=== PATIENT | male | born 1975 | race Two or more races ===

== ENCOUNTER 2024-09-14 10:02 | Emergency (ER) | payer BC, SELFPAY ==
[2024-09-14] VITALS (10 sets, daily range): BP systolic 180–236; BP diastolic 83–149; PULSE 52–92; RESP 16–24; TEMP 36.6–37.2; O2SAT 95–99; BMI 51.7
--- NOTE | 2024-09-14 10:13 | EDNOTE_ITS ---
Upper Respiratory Inf. RME/HPI General Chief Complaint: Flu Like Symptoms Stated Complaint: cough, sob x 3days Time Seen by Provider: 09/14/24 10:13 Source: patient Arrival date/time: 09/14/24 10:02 49-year-old male with a history of hypertension presents to the emergency room with a chief complaint of cough and shortness of breath x 3 days. Mode of arrival: ambulatory Limitations: no limitations Related Data Previous Rx's ?Medication ?Instructions ?Recorded azithromycin 250 mg tablet See Rx Instructions PO .COMPLEX #6 09/14/24 (Zithromax Z-Delbert) tabs lisinopril 20 mg tablet 20 mg PO QDAY #20 tabs 09/14/24 Allergies Allergy/AdvReac Type Severity Reaction Status Date / Time cephalexin [From Keflex] Allergy Intermediate Hives Verified 09/14/24 10:06 Review of Systems Review of Systems Systems Reviewed: All systems reviewed, normal except as documented Constitutional Constitutional: Reports system reviewed and no additional complaints, except as documented, Denies fatigue, Denies fever(s), Denies headache(s) and Denies weakness Eyes Eyes: Reports system reviewed and no additional complaints, except as documented, Denies blurry vision and Denies change in vision ENT Ears, Nose, Mouth, and Throat: Reports system reviewed and no additional complaints, except as documented, Denies otalgia, Denies headache(s), Denies nasal congestion, Denies throat swelling and Denies vertigo Cardiovascular Cardiovascular: Reports system reviewed and no additional complaints, except as documented, Denies chest pain, Reports dyspnea and Reports dyspnea on exertion Respiratory Respiratory: Reports system reviewed and no additional complaints, except as documented, Reports chest congestion, Reports cough, Reports dyspnea, Reports dyspnea on exertion, Reports pain on inspiration, Reports pain with cough and Reports wheezing Gastrointestinal Gastrointestinal: Reports system reviewed and no additional complaints, except as documented, Denies abdominal pain, Denies cramping, Denies nausea and Denies vomiting Genitourinary Genitourinary: Reports system reviewed and no additional complaints, except as documented, Denies dysuria and Denies hematuria Musculoskeletal Musculoskeletal: Reports system reviewed and no additional complaints, except as documented and Denies back pain Integumentary/Breasts Skin/Breast: Reports system reviewed and no additional complaints, except as documented and Denies wounds Neurologic Neurologic: Reports system reviewed and no additional complaints, except as documented, Denies confusion, Denies headache(s), Denies lack of coordination, Denies vertigo and Denies weakness Psychiatric Psychiatric: Reports system reviewed and no additional complaints, except as documented, Denies anxiety, Denies confusion, Denies depression, Denies paranoia, Denies suicidal ideation and Denies tactile hallucinations Endocrine Endocrine: Reports system reviewed and no additional complaints, except as documented and Denies fatigue Hematologic/Lymphatic Hematologic/Lymphatic: Reports system reviewed and no additional complaints, except as documented and Denies lymphadenopathy Allergic/Immunologic Allergic/Immunologic: Reports system reviewed and no additional complaints, except as documented, Denies throat swelling, Denies urticaria and Reports wheezing Past Medical History Social History SMOKING STATUS: Never smoker ED Exam General Limitations: Present no limitations General appearance: Present alert and in no apparent distress Head Head exam: Present atraumatic Eye Eye exam: Present normal appearance, PERRL and EOMI ENT ENT exam: Present normal exam, normal oropharynx and mucous membranes moist Neck Neck exam: Present normal inspection, full ROM and trachea midline Chest Chest inspection: Present normal inspection and symmetric chest wall rise Respiratory Respiratory exam: Present normal lung sounds bilaterally and wheezes; Absent respiratory distress, stridor, accessory muscle use or prolonged expiratory phase Expanded Respiratory Exam Location: Left: wheezes, Right: wheezes, Upper: wheezes and Lower: wheezes Cardiovascular Cardiovascular exam: Present regular rate, normal rhythm and normal heart sounds Abdominal Exam Abdominal exam: Present soft and normal bowel sounds Extremities Exam Extremities exam: Present normal inspection and full ROM Back Exam Back exam: Present normal inspection and full ROM Neurological Exam Neurological exam: Present alert, oriented X3 and CN II-XII intact Psychiatric Psychiatric exam: Present normal affect and normal mood Skin Skin exam: Present warm, dry, intact and normal color Course Quality Measures none Orders Category Date Time Status Bedside COVID-19 Antigen Test NOW Care 09/14/24 10:13 Active Bedside Influenza A&B Antigen Test NOW Care 09/14/24 10:13 Completed EKG (ED ONLY) *Do not use* NOW Care 09/14/24 13:24 Completed EKG (ED ONLY) *Do not use* NOW Care 09/14/24 14:35 Completed Insert IV NOW Care 09/14/24 13:24 Active EKG (ED Only) Stat Exams 09/14/24 13:24 Draft EKG (ED Only) Stat Exams 09/14/24 14:35 Ordered XR chest 2V Stat Exams 09/14/24 10:13 Completed B-Type Natriuretic Peptide Stat Lab 09/14/24 14:03 Completed CBC Stat Lab 09/14/24 14:03 Completed Comprehensive Metabolic Panel Stat Lab 09/14/24 14:03 Completed Troponin I Stat Lab 09/14/24 14:03 Completed ACETAMINOPHEN w/COD 300-30 [Tylenol w/Cod #3] Med 09/14/24 10:13 Discontinued 1 tab PO X1 ONE Albuterol/Ipratr Rt Jacquie [Duoneb Rt Jacquie] Med 09/14/24 10:13 Discontinued 3 ml INH X1 ONE Azithromycin Po [Zithromax PO] Med 09/14/24 16:53 Discontinued 500 mg PO X1 ONE Dexamethasone Inj [Decadron Inj] Med 09/14/24 10:13 Discontinued 10 mg PO X1 ONE Sodium Chloride 0.9% 1000 ml [Ns] 1,000 ml Med 09/14/24 16:01 Discontinued IV 999 mls/hr cloNIDine HCL [Catapres] Med 09/14/24 11:45 Discontinued 0.2 mg PO X1 ONE cloNIDine HCL [Catapres] Med 09/14/24 16:00 Discontinued 0.3 mg PO X1 ONE hydrALAZINE HCL [Apresoline] Med 09/14/24 16:00 Discontinued 25 mg PO X1 ONE hydrALAZINE INJ [Apresoline Inj] Med 09/14/24 13:24 Discontinued 10 mg IV X1 ONE Vital Signs Vital signs: Vital Signs Temperature 99.0 F 09/14/24 10:20 Pulse Rate 68 09/14/24 10:20 Respiratory Rate 24 H 09/14/24 10:20 Blood Pressure 236/149 H 09/14/24 10:20 Pulse Oximetry (%) 95 09/14/24 10:20 Oxygen Delivery Method Room Air 09/14/24 10:20 Upper Respiratory Infection MDM Narrative MDM Narrative:: 49-year-old male with a history of hypertension presents to the emergency room with a chief complaint of cough and shortness of breath x 3 days. Clinically the patient appears nontoxic and in no apparent distress. Physical examination shows clear bilateral lung sounds with no wheezing stridor or any respiratory distress. Patient's O2 saturation is 98% on room air. Chest x-ray was completed and shows right middle lobe pneumonia. Antibiotics are sent to the patient's pharmacy. Patient also has a blood pressure of 204/132. Multiple at tempts were tried to lower this blood pressure. The patient received hydralazine, clonidine and after multiple hours the patient's blood pressure finally dropped to 180/83. Patient was given strict education to follow-up with his primary care provider as he will need an increase in his blood pressure medication. Patient is a GCS of 15 he is alert and oriented neurological examination is within normal limits patient's pupils are PERRLA EOMs are intact patient denies any dizziness lightheadedness blurry vision spots in vision. Patient has a normal steady gait. Cardiac workup was completed and was negative for any acute findings. EKG shows normal sinus rhythm with no ST deviation. Troponin was negative. Patient was discharged and educated to follow-up with primary care provider and return to the emergency room for any evidence of worsening signs or symptoms Patient data External records reviewed:: [facility] previous records Clinical information provided by:: patient Social determinants that could affect healthcare access:: none Patient has the following chronic illnesses:: Hypertension How is presenting disease/condition affected by chronic disease/condition?: uneffected by Evaluation data The following diagnostics were reviewed and interpreted by me:: lab results and radiology exam(s) Lab and/or radiology exams considered but not ordered:: Labs and radiology exams considered and ordered Interpretation Summary: Chest [id number]-[id number]: Right middle lobe pneumonia Normal heart size Mild vascular congestion IMPRESSION: Right middle lobe pneumonia Medications / Prescriptions Medications or Prescriptions considered but not ordered:: Medication given Medication administrations:: Medication Administration History Discontinued Medications Acetaminophen/Codeine Phosphate (Acetaminophen W/Cod 300-30 Tablet) 1 tab PO X1 ONE Stop: 09/14/24 10:14 Last Admin: 09/14/24 10:43 Dose: 1 tab Documented By: KM Albuterol/Ipratropium (Albuterol/Ipratropium (Duoneb) Rt Jacquie 3 Ml Nebu) 3 ml INH X1 ONE Stop: 09/14/24 10:14 Last Admin: 09/14/24 10:51 Dose: 3 ml Documented By: BA Azithromycin (Azithromycin 250 Mg Tablet) 500 mg PO X1 ONE Stop: 09/14/24 16:54 Last Admin: 09/14/24 17:00 Dose: 500 mg Documented By: OA Clonidine (Clonidine Hcl 0.1 Mg Tablet) 0.2 mg PO X1 ONE Stop: 09/14/24 11:46 Last Admin: 09/14/24 12:08 Dose: 0.2 mg Documented By: LEXX Clonidine (Clonidine Hcl 0.1 Mg Tablet) 0.3 mg PO X1 ONE Stop: 09/14/24 16:01 Last Admin: 09/14/24 16:10 Dose: 0.3 mg Documented By: REBECCA Dexamethasone Sodium Phosphate (Dexamethasone Sod Phos Inj 10 Mg/Ml Vial) 10 mg PO X1 ONE Stop: 09/14/24 10:14 Last Admin: 09/14/24 10:44 Dose: 10 mg Documented By: LEXX Comments: oral Hydralazine HCl (Hydralazine Inj 20 Mg/Ml Vial) 10 mg IV X1 ONE Stop: 09/14/24 13:25 Last Admin: 09/14/24 14:29 Dose: 0.5 mg Documented By: KAMILLA Hydralazine HCl (Hydralazine Hcl 25 Mg Tablet) 25 mg PO X1 ONE Stop: 09/14/24 16:01 Last Admin: 09/14/24 16:10 Dose: 25 mg Documented By: REBECCA Sodium Chloride (Ns) 1,000 mls @ 999 mls/hr IV .Q1H1M ONE Stop: 09/14/24 17:01 Last Admin: 09/14/24 16:09 Dose: 999 mls/hr Documented By: REBECCA Rx given Consultations Consultation(s) initiated? (list below): No Diagnosis Upper Respiratory Differential Diagnosis: upper respiratory infection, viral infection, bronchitis, influenza and other (Community-acquired pneumonia) Most likely diagnosis given after review of the tests above:: Community-acquired pneumonia Admission Indicated Admission indicated?: not indicated Admission Request Was there a request for admission?: No Disposition Plan Disposition Plan: Discharge Discharge Attestation Discharge Attestation: The patient and all family members were given an opportunity to ask questions and understood the discharge instructions. Discharge instructions specifically effects, indications for sooner follow up or return to the emergency department, and the expected course of current diagnosis. Patient condition: Stable Discharge Plan Plan Patient Disposition: HOME (Self Care) Disposition Comment: Stable Prescriptions/Referrals Prescriptions/Med Rec: New azithromycin [Zithromax Z-Delbert] 250 mg tablet See Rx Instructions .ROUTE .COMPLEX Qty: 6 0RF Rx Instructions: For 250 mg dose pack: take 500 mg today (day 1), then 250 mg for 4 days (days 2-5) lisinopril 20 mg tablet 20 mg PO QDAY Qty: 20 0RF Problem List Clinical Impression: Community acquired pneumonia, Asymptomatic hypertensive urgency Patient/Caregiver Discharge Instructions Education Materials: ED Pneumonia (Adult) Additional Instructions: Please follow-up with your primary care provider in the next 24 to 48 hours Your blood pressure is currently uncontrolled you will need to follow-up with your primary care provider for further management. Antibiotics are sent to your pharmacy as well as blood pressure medication please take this blood pressure medication with your metoprolol medication. For any evidence of worsening signs or symptoms please return to the emergency room immediately Print Language: Zambian Stand Alone Forms: Shavon Award Info., Patient Portal Info Letter PA/MESSAGE AND DELIVERY SERVICE PRICER Supervising Physician PA/JALYN Supervising Physician: Dr. Roth
--- NOTE | 2024-09-14 10:13 | XR_ITS ---
Examination: PA lateral chest 2 views TECHNIQUE: Upright PA lateral chest 2 views Exam date and time: September 14, 2024 1017 hours INDICATIONS: Coughing fever today. FINDINGS: Right middle lobe pneumonia Normal heart size Mild vascular congestion IMPRESSION: Right middle lobe pneumonia
[2024-09-14] MEDS: ACETAMINOPHEN w/COD 300-30 TABLET 1 TAB PO (10:43)
[2024-09-14] MEDS: DEXAMETHASONE SOD PHOS INJ 10 MG/ML VIAL PO (10:44)
[2024-09-14] MEDS: ALBUTEROL/IPRATROPIUM (Duoneb) RT SOL 3 ML NEBU INH (10:51)
[2024-09-14] MEDS: cloNIDine HCL 0.1 MG TABLET 0.2 MG PO (12:08)
--- NOTE | 2024-09-14 13:24 | EKG_ITS ---
[facility] Test Date: 2024-09-14 Pat Name: REYNA RUSSO Department: Room: - Gender: Male [employer]: : 1975 Requested By: Aníbal Casillas Order Number: [id number] Reading MD: Aníbal Casillas Measurements Intervals [place] Rate: 90 P: -14 OK: 141 QRS: 30 QRSD: 100 T: 61 QT: 376 QTc: 460 Interpretive Statements SINUS RHYTHM No previous ECG available for comparison /store/S0/[id number].pdf
[2024-09-14 14:20] LABS: Basophils # (Auto) 0.1 Thou/mm3 (0.0-0.2); Basophils % (Auto) 1 % (0-2.5); Eosinophils % (Auto) 0 % (0-10); Hematocrit 47.3 % (41.0-53.0); Hemoglobin 16.4 g/dL (13.5-16.0); Immature Granulocytes % (Auto) 1 % (0-0); Immature Granulocytes Auto 0.06 Thou/mm3 (0.00-0.00); Lymphocytes # (Auto) 1.5 Thou/mm3 (1.0-4.8); Lymphocytes % (Auto) 21 % (10-50); Mean Corpuscular HGB Conc 34.7 g/dl (31.0-37.0); Mean Corpuscular Hemoglobin 30.5 pg (25.0-35.0); Mean Corpuscular Volume 88 fL (80-100); Monocytes # (Auto) 0.3 Thou/mm3 (0.0-0.8); Monocytes % (Auto) 4 % (0-12); Neutrophils # (Auto) 5.4 Thou/mm3 (1.8-7.7); Neutrophils % (Auto) 73 % (37-80); Nucleated Red Blood Cell % 0 /100 WBC (0); Platelet Count 190 Thou/mm3 (140-440); RDW Standard Deviation 39.7 fL (35.1-43.9); Red Blood Count 5.37 Miln/mm3 (4.50-5.90); White Blood Count 7.4 Thou/mm3 (3.8-10.6)
[2024-09-14] MEDS: hydrALAZINE INJ 20 MG/ML VIAL 10 MG IV (14:29)
[2024-09-14 14:37] LABS: B-Type Natriuretic Peptide 40 pg/mL (0-100)
[2024-09-14 14:41] LABS: Troponin I < 0.020 ng/mL (0.0-0.045)
[2024-09-14 14:42] LABS: Alanine Aminotransferase 74 U/L (10-49); Albumin, Serum 4.4 gm/dL (3.5-5.0); Albumin/Globulin Ratio 1.4 (1.2-2.2); Alkaline Phosphatase 89 U/L (46-116); Anion Gap 10 (7-16); Aspartate Amino Transferase 47 U/L (0-34); BUN/Creatinine Ratio 11 Ratio (12-20); Bilirubin,Total 0.5 mg/dL (0.3-1.2); Blood Urea Nitrogen 8 mg/dL (9-23); Calcium 9.9 mg/dL (8.3-10.6); Calcium (Corrected) 9.9 mg/dL (8.5-10.1); Carbon Dioxide 27.8 mMol/L (20.0-31.0); Chloride 102 mMol/L (98-107); Creatinine (Component) 0.7 mg/dL (0.6-1.3); Estimated Creatinine Clearance 189.3 mL/min (>60); Globulin 3.2 gm/dL (2.3-3.5); Glucose 130 mg/dL (74-106); Osmolality,Calculated 279 (275-295); Potassium 3.9 mMol/L (3.4-5.1); Sodium 140 mMol/L (136-145); Total Protein 7.6 gm/dL (5.7-8.2); eGFR > 60 See Note
[2024-09-14] MEDS: SODIUM CHLORIDE 0.9% 1000 ML 1,000 ML 999 ML IV (16:09)
[2024-09-14] MEDS: hydrALAZINE HCL 25 MG TABLET PO (16:10)
[2024-09-14] MEDS: cloNIDine HCL 0.1 MG TABLET 0.3 MG PO (16:10)
[2024-09-14] MEDS: AZITHROMYCIN 250 MG TABLET 500 MG PO (17:00)
== END 2024-09-14 18:03 | disposition home or self-care (01) ==
LOC: SERX 12:09
PROVIDERS: Nurse Practitioner Family; Emergency Provider Emergency Medicine; PCP Internal Medicine
DX: J18.9 Pneumonia, unspecified organism (principal); I16.0 Hypertensive urgency
CPT/HCPCS: 36415; 71046; 80053; 83880; 84484; 85025; 87400; 87811; 93005; 94640; 99284; A9270; J0360; J1100; J7030

== ENCOUNTER → 2024-12-17 | Outpatient (CLI) | payer BC, SELFPAY ==
[2024-12-17 10:22] LABS: Collection Type, Urine Clean Catch
[2024-12-17 10:34] LABS: Basophils % (Auto) 1 % (0-2.5); Eosinophils # (Auto) 0.2 Thou/mm3 (0.0-0.5); Eosinophils % (Auto) 3 % (0-10); Hematocrit 49.5 % (41.0-53.0); Hemoglobin 16.7 g/dL (13.5-16.0); Immature Granulocytes % (Auto) 0 % (0-0); Immature Granulocytes Auto 0.02 Thou/mm3 (0.00-0.00); Lymphocytes # (Auto) 1.6 Thou/mm3 (1.0-4.8); Lymphocytes % (Auto) 26 % (10-50); Mean Corpuscular HGB Conc 33.7 g/dl (31.0-37.0); Mean Corpuscular Hemoglobin 30.6 pg (25.0-35.0); Mean Corpuscular Volume 91 fL (80-100); Monocytes # (Auto) 0.6 Thou/mm3 (0.0-0.8); Monocytes % (Auto) 9 % (0-12); Neutrophils # (Auto) 3.9 Thou/mm3 (1.8-7.7); Neutrophils % (Auto) 62 % (37-80); Nucleated Red Blood Cell % 0 /100 WBC (0); Platelet Count 199 Thou/mm3 (140-440); RDW Standard Deviation 40.2 fL (35.1-43.9); Red Blood Count 5.46 Miln/mm3 (4.50-5.90); White Blood Count 6.3 Thou/mm3 (3.8-10.6)
[2024-12-17 10:49] LABS: Bilirubin,Urine Negative (Negative); Blood,Urine Negative (Negative); Clarity,Urine Clear (Clear/Hazy); Color,Urine Yellow (Lt Yel-Yel); Glucose, Urine Negative (Negative); Ketones,Urine Negative (Negative); Leukocyte Esterase,Urine Negative (Negative); Nitrite,Urine Negative (Negative); Protein,Urine 1+ (Neg - Trace); RBC,Urine 2 /hpf (0-3); Specific Gravity,Urine 1.019 (1.001-1.035); Squamous Epithelial Cell,Urine < 1 /hpf (0-5); Urobilinogen,Urine Negative mg/dL (0.0-1.0); WBC,Urine 1 /hpf (0-5)
[2024-12-17 10:57] LABS: Alanine Aminotransferase 95 U/L (10-49); Albumin, Serum 4.3 gm/dL (3.5-5.0); Albumin/Globulin Ratio 1.5 (1.2-2.2); Alkaline Phosphatase 81 U/L (46-116); Anion Gap 10 (7-16); Aspartate Amino Transferase 67 U/L (0-34); BUN/Creatinine Ratio 10 Ratio (12-20); Bilirubin,Total 1.5 mg/dL (0.3-1.2); Blood Urea Nitrogen 8 mg/dL (9-23); Calcium 9.4 mg/dL (8.3-10.6); Calcium (Corrected) 9.4 mg/dL (8.5-10.1); Carbon Dioxide 26.1 mMol/L (20.0-31.0); Cardiac Risk Estimate 2.6 RATIO (4.0-6.7); Chloride 103 mMol/L (98-107); Cholesterol 198 mg/dL (132-200); Creatinine (Component) 0.8 mg/dL (0.6-1.3); Globulin 2.9 gm/dL (2.3-3.5); Glucose 130 mg/dL (74-106); HDL Cholesterol 75 mg/dL (40-60); LDL Cholesterol,Calculated 104 mg/dL (0-130); Osmolality,Calculated 277 (275-295); Potassium 3.7 mMol/L (3.4-5.1); Sodium 139 mMol/L (136-145); Thyroid Stimulating Hormone 3.62 uIU/mL (0.55-4.78); Total Protein 7.2 gm/dL (5.7-8.2); Triglycerides 97 mg/dL (30-150); Uric Acid 6.2 mg/dL (3.7-9.2); eGFR > 60 See Note
[2024-12-17 11:07] LABS: Vitamin B12 656 pg/mL (211-911)
[2024-12-17 11:24] LABS: Glucose Estimated Average 117 mg/dL (80-131); Hemoglobin A1C 5.7 % Hgb (4.8-6.0); Vitamin D 25 Hydroxy Total 23.8 ng/mL (7.3-40.2)
[2024-12-27 08:16] LABS: Acetylcholine Rec Bind Ab* 23.69 nmol/L; Acetylcholine Rec Bloc Ab* <15 (<15); Acetylcholine Rec Mod Ab* 82
== END | disposition home or self-care (01) ==
LOC: COPL 09:57
PROVIDERS: PCP Internal Medicine; Referring Provider Internal Medicine; Visit Provider Ophthalmology
DX: Z00.00 Encounter for general adult medical examination without abnormal findings (principal); I10 Essential (primary) hypertension; H02.402 Unspecified ptosis of left eyelid
CPT/HCPCS: 36415; 80053; 80061; 81001; 82306; 82607; 83036; 83519; 84443; 84550; 85025

== ENCOUNTER → 2025-01-14 | Outpatient (CLI) | payer BC, SELFPAY ==
[2025-01-14 14:24] LABS: Glucose Estimated Average 120 mg/dL (80-131); Hemoglobin A1C 5.8 % Hgb (4.8-6.0)
[2025-01-14 14:27] LABS: Alanine Aminotransferase 87 U/L (10-49); Albumin, Serum 4.6 gm/dL (3.5-5.0); Albumin/Globulin Ratio 1.6 (1.2-2.2); Alkaline Phosphatase 79 U/L (46-116); Anion Gap 8 (7-16); Aspartate Amino Transferase 73 U/L (0-34); BUN/Creatinine Ratio 11 Ratio (12-20); Bilirubin,Total 1.4 mg/dL (0.3-1.2); Blood Urea Nitrogen 11 mg/dL (9-23); Calcium 9.4 mg/dL (8.3-10.6); Calcium (Corrected) 9.4 mg/dL (8.5-10.1); Carbon Dioxide 28.3 mMol/L (20.0-31.0); Chloride 105 mMol/L (98-107); Globulin 2.9 gm/dL (2.3-3.5); Glucose 125 mg/dL (74-106); Osmolality,Calculated 281 (275-295); Potassium 4.3 mMol/L (3.4-5.1); Sodium 141 mMol/L (136-145); Total Protein 7.5 gm/dL (5.7-8.2); eGFR > 60 See Note
[2025-01-24 07:31] LABS: Testosterone, Total, Dialysis 302 ng/dL (250-1100)
== END | disposition home or self-care (01) ==
PROVIDERS: PCP Internal Medicine; Referring Provider Psychiatry & Neurology Neurology; Visit Provider Psychiatry & Neurology Neurology
DX: E29.1 Testicular hypofunction (principal)
CPT/HCPCS: 36415; 80053; 83036; 84402; 84403; 86664; 86665

== ENCOUNTER → 2025-08-19 | Outpatient (CLI) | payer BC, SELFPAY ==
[2025-08-19 09:54] LABS: Collection Type, Urine Clean Catch
[2025-08-19 10:54] LABS: Bilirubin,Urine Negative (Negative); Blood,Urine Negative (Negative); Clarity,Urine Clear (Clear/Hazy); Color,Urine Yellow (Lt Yel-Yel); Culture Indicated,Urine Not Indicated; Glucose, Urine Negative (Negative); Hyaline Casts,Urine < 1 /hpf (0-1); Ketones,Urine Trace (Negative); Leukocyte Esterase,Urine Negative (Negative); Nitrite,Urine Negative (Negative); PH,Urine 6.0 (5.0-7.0); Protein,Urine 1+ (Neg - Trace); RBC,Urine 4 /hpf (0-3); Specific Gravity,Urine 1.025 (1.001-1.035); Squamous Epithelial Cell,Urine < 1 /hpf (0-5); Urobilinogen,Urine Negative mg/dL (0.0-1.0); WBC,Urine 4 /hpf (0-5)
[2025-08-19 11:03] LABS: Glucose Estimated Average 120 mg/dL (80-131); Hemoglobin A1C 5.8 % Hgb (4.8-6.0)
[2025-08-19 11:08] LABS: Albumin, Serum 4.6 gm/dL (3.5-5.0); Anion Gap 10 (7-16); BUN/Creatinine Ratio 13 Ratio (12-20); Blood Urea Nitrogen 10 mg/dL (9-23); Calcium 9.6 mg/dL (8.3-10.6); Calcium (Corrected) 9.6 mg/dL (8.5-10.1); Carbon Dioxide 29.6 mMol/L (20.0-31.0); Chloride 101 mMol/L (98-107); Creatinine (Component) 0.8 mg/dL (0.6-1.3); Glucose 124 mg/dL (74-106); Osmolality,Calculated 281 (275-295); Phosphorous 3.4 mg/dL (2.4-5.1); Potassium 4.0 mMol/L (3.4-5.1); Sodium 141 mMol/L (136-145); eGFR > 60 See Note
== END | disposition home or self-care (01) ==
LOC: COPL 09:25
PROVIDERS: PCP Internal Medicine; Referring Provider Internal Medicine; Visit Provider Internal Medicine
DX: R73.03 Prediabetes (principal); I10 Essential (primary) hypertension
CPT/HCPCS: 36415; 80069; 81001; 83036